=== PATIENT | female | born 1990 | race Caucasian/White ===

== ENCOUNTER 2018-10-15 17:34 | Emergency (ER) | payer OTHER ==
[~2018-10-15] VITALS: Ht 162.6 cm; Wt 52.3 kg
[2018-10-15 17:42] VITALS: TEMP 98.3
[2018-10-15] MEDS ORDERED: PROAIR HFA0.09 MG/AC IH (18:19)
[2018-10-15 19:34] VITALS: BP 141/95; PULSE 81
== END 2018-10-15 19:34 | disposition home or self-care (01) ==
LOC: COL.ER 17:34
DX: R07.89 Other chest pain (principal)

== ENCOUNTER 2020-08-24 12:37 | Emergency (ER) | payer MEDICAID ==
[~2020-08-24] VITALS: Ht 162.6 cm; Wt 52.3 kg
[~2020-08-24 12:37] MED LIST: PROAIR HFA0.09 MG/AC IH
[2020-08-24 13:05] VITALS: TEMP 98.2
[2020-08-24 14:12] VITALS: BP 118/70; PULSE 70
== END 2020-08-24 14:13 | disposition home or self-care (01) ==
LOC: COL.ER 12:37
DX: O98.513 Other viral diseases complicating pregnancy, third trimester (principal); U07.1 COVID-19; J45.909 Unspecified asthma, uncomplicated; Z3A.33 33 weeks gestation of pregnancy; Z79.51 Long term (current) use of inhaled steroids

== ENCOUNTER 2020-08-28 13:14 | Outpatient (CLI) | payer MEDICAID ==
[~2020-08-28] VITALS: Ht 170.2 cm; Wt 62.7 kg
--- NOTE | 2020-08-28 13:45 | NUR ---
[id number] 33.[address] Mathur to unit per MD for complaint of sharp nauseating pain at 1300 in [facility]. Paitient reports pain improved and is now only a 3/10 on pain scale. VSS, assessment complete. SVE C/TH/H, intact. Updated MD, see physician notification.
[2020-08-28 14:15] VITALS: BP 112/72; PULSE 94; TEMP 97.7
[2020-08-28 14:45] VITALS: BP 109/74; PULSE 102
--- NOTE | 2020-08-28 14:45 | NUR ---
PT HAD 1 CONTRACTION IN PAST 30 MINUTE STRIP, UTERUS MODERATELY FIRM, RN AT BEDSIDE PALPATING THROUGHOUT CONTRACTION, PT NOTICES CONTRACTIONS BUT NO OBVIOUS SIGNS OF PAIN
[2020-08-28 15:06] LABS: COLLECTION METHOD CLEAN CATCH
[2020-08-28 15:15] VITALS: BP 110/67; PULSE 100
[2020-08-28 15:19] LABS: ALANINE AMINOTRANSFERASE 14 U/L (4-34); ALBUMIN 3.4 gm/dL (3.5-5.0); ALKALINE PHOSPHATASE 129 U/L (50-136); ANION GAP 6 mmol/L (7-16); AST,SGOT 21 U/L (15-37); BILIRUBIN,TOTAL < 0.1 mg/dL (0.0-1.0); BLOOD UREA NITROGEN 3 mg/dL (7-17); CALCIUM 8.8 mg/dL (8.4-10.2); CARBON DIOXIDE 21 mmol/L (22-30); CHLORIDE 107 mmol/L (98-107); CREATININE, serum 0.38 (0.52-1.25); GLUCOSE 92 mg/dL (74-106); POTASSIUM 3.6 mmol/L (3.4-5.0); SODIUM 134 mmol/L (137-145); TOTAL PROTEIN 6.8 gm/dL (6.4-8.2)
[2020-08-28] MEDS ORDERED: PREDNISONE20 MG PO (15:20)
[2020-08-28] MEDS ORDERED: PRENATAL (15:21)
[2020-08-28] MEDS ORDERED: NATURAL IRON65 MG (15:21)
[2020-08-28 15:35] LABS: PH 8 (5-8); URINE APPEARANCE Clear; URINE BACTERIA Rare /hpf; URINE BILIRUBIN Negative (NEGATIVE); URINE BLOOD Negative (NEGATIVE); URINE COLOR Straw; URINE GLUCOSE Negative (NEGATIVE); URINE KETONE Negative (NEGATIVE); URINE LEUKOCYTE ESTERASE Negative (NEGATIVE); URINE NITRATE Negative (NEGATIVE); URINE PROTEIN(semi-quant) Negative (NEGATIVE); URINE RBC 0-2 /hpf; URINE UROBILINOGEN Negative (NEGATIVE)
[2020-08-28 15:45] VITALS: BP 113/64; PULSE 100
[2020-08-28 16:03] LABS: MEAN CELL VOLUME 89 fl (80.0-100.0); MEAN CORPUSCULAR HGB CONC 32 g/dl (33.0-37.0); MEAN PLATELET VOLUME 11.1 fl (7.4-10.4); PLATELET COUNT 256 K/mm3 (130-400); REDCELL DISTRIBUTION WIDTH-CV 14.7 % (11.5-14.5)
[2020-08-28 16:08] LABS: HEMATOCRIT 28.6 % (37.0-47.0); MEAN CORPUSCULAR HEMOGLOBIN 28 pg (27.0-31.0)
[2020-08-28 16:15] VITALS: PULSE 100
--- NOTE | 2020-08-28 16:15 | NUR ---
1615-Dr. Lara called unit. Order recieved to discharge patient. Patient off EFM. Updated on discharge plan. 1620-Reviewed discharge instructions with patient. Ambulatory down to car where family awaits to take patient home.
[2020-08-28 16:29] LABS: BAND 1 % (0-10); EOSINOPHIL 1 % (0-4); LYMPHOCYTE 23 % (20.0-51.0); NEUTROPHILS 70 % (42.0-75.2); NUCLEATED RED BLOOD CELL 1 (0-6)
[2020-08-28 16:30] LABS: PLATELET ESTIMATE NORMAL (NORMAL)
[2020-08-28 16:31] LABS: SCHISTOCYTES 1+; SPHEROCYTE 1+
== END 2020-08-28 16:20 | disposition home or self-care (01) ==
LOC: LDRO 13:14 → LDR 13:16 → LDRO 13:16 → LDR 13:45 → LDRO 13:45
PROVIDERS: Obstetrics & Gynecology
DX: O62.9 Abnormality of forces of labor, unspecified (principal); Z3A.33 33 weeks gestation of pregnancy
CPT/HCPCS: OP

== ENCOUNTER 2020-10-02 14:28 | Outpatient (CLI) | payer MEDICAID ==
[~2020-10-02] VITALS: Ht 160 cm; Wt 67.7 kg
--- NOTE | 2020-10-02 14:15 | NUR ---
Admits to L&D for labor check, with c/o cramping for several hours. Accompanied by significant other, father of baby.
[2020-10-02 14:21] VITALS: TEMP 97.9
[2020-10-02 14:22] VITALS: BP 119/73; PULSE 82; TEMP 97.9
[~2020-10-02 14:28] MED LIST changes: +NATURAL IRON65 MG; +PREDNISONE20 MG PO; +PRENATAL
--- NOTE | 2020-10-02 14:45 | NUR ---
Repositioned to right lateral.
[2020-10-02 14:50] VITALS: BP 102/63; PULSE 82
--- NOTE | 2020-10-02 15:05 | NUR ---
Discharged to home with early labor precautions/common discomforts of instructions. Denies any further questions or concerns. Instructed to return for evaluation with leaking of fluid, vaginal bleeding, or decreased movement. Verbalizes understanding.
== END 2020-10-02 15:05 | disposition home or self-care (01) ==
LOC: LDRO 14:28 → LDR 14:29 → LDRO 14:29
DX: O26.893 Other specified pregnancy related conditions, third trimester (principal); R25.2 Cramp and spasm; Z86.16 Personal history of COVID-19; Z3A.39 39 weeks gestation of pregnancy
CPT/HCPCS: OP

== ENCOUNTER 2020-10-06 14:28 | Outpatient (CLI) | payer MEDICAID ==
[~2020-10-06] VITALS: Ht 160 cm; Wt 69.1 kg
--- NOTE | 2020-10-06 14:30 | NUR ---
Pt arrived on unit ambulatory and with complaints of contractions/pain every couple mins for over an hour. Pt denies any leaking of fluid or vaginal bleeding and reports normal movement. EFM and toco monitors started. Vital signs WNL. SVE by this RN 0//-3. Information reviewed with Dr. Guerrero. Orders for labor assessment received.
[2020-10-06 15:37] VITALS: BP 127/86; PULSE 92; TEMP 98.1
== END 2020-10-06 15:50 | disposition home or self-care (01) ==
LOC: LDRO 14:28 → LDR 14:30 → LDRO 15:50
DX: Z34.93 Encounter for supervision of normal pregnancy, unspecified, third trimester (principal); Z3A.39 39 weeks gestation of pregnancy
CPT/HCPCS: OP

== ENCOUNTER 2020-10-07 11:03 | Inpatient (IN) | payer MEDICAID ==
[~2020-10-07] VITALS: Ht 160 cm; Wt 67.7 kg
[2020-10-07] VITALS (16 sets, daily range): BP systolic 97–121; BP diastolic 62–84; PULSE 60–86; TEMP 98–98.6
--- NOTE | 2020-10-07 11:15 | NUR ---
1115- Pt arrives on unit ambulatory with spouse. Pt into bathroom to change into gown. EFM and TOCO on and tracing. O2 sat monitor on and tracing maternal HR. VSS. Pt states she has been jeremy every 5mins for the past couple of hours. Denies LOF, VB. + FM per Pt but states it is "less than normal". 1120- Amniotrace negative, SVE by this RN. 1125- Dr Guerrero at nurses station, reviews stip, updated on Pt status. VORB to admit Pt for repeat section.
--- NOTE | 2020-10-07 11:30 | NUR ---
PATIENT PREPPED FOR C/S. IV STARTED, CONSENTS SIGNED, PATIENT ANXIOUS. PATIENT AMBULATED TO OR
--- NOTE | 2020-10-07 11:53 | NUR ---
1153- M and TOCO off. Pt ambulates to OR with MADELINE Starks.
[2020-10-07 12:13] LABS: BASO % 0.2 % (0.0-2.0); EOS % 0.3 % (0-4.0); GRAN # 8.7 (1.4-6.5); GRAN % 74.9 % (42.2-75.2); HEMOGLOBIN 11.6 g/dl (12.5-16.0); LYMPH # 1.9 (1.2-3.4); LYMPH % 16.4 % (20.0-51.0); MEAN CELL VOLUME 89 fl (80.0-100.0); MEAN CORPUSCULAR HEMOGLOBIN 30 pg (27.0-31.0); MEAN CORPUSCULAR HGB CONC 33 g/dl (33.0-37.0); MEAN PLATELET VOLUME 12.1 fl (7.4-10.4); MONO # 0.9 (0.1-0.6); MONO % 7.5 % (1.7-9.3); PLATELET COUNT 257 K/mm3 (130-400); RED BLOOD COUNT 3.92 M/mm3 (4.10-5.30); REDCELL DISTRIBUTION WIDTH-CV 17.1 % (11.5-14.5)
[2020-10-07 12:16] LABS: HEMATOCRIT 34.8 % (37.0-47.0)
[2020-10-08 02:00] VITALS: BP 132/82; PULSE 76; TEMP 97.9
[2020-10-08 08:10] VITALS: BP 131/77; PULSE 80; TEMP 98.3
[2020-10-08 12:35] VITALS: BP 120/83; PULSE 79; TEMP 97.3
[2020-10-08 21:30] VITALS: BP 112/78; PULSE 95; TEMP 98.1
[2020-10-09 07:21] VITALS: BP 123/84; PULSE 87; TEMP 97.4
[2020-10-09] MEDS ORDERED: MOTRIN SUSP20 MG/ML PO (12:52)
[2020-10-09] MEDS ORDERED: OXYCODONE H5 MG/5 ML PO (12:55)
== END 2020-10-09 18:21 | disposition home or self-care (01) | DRG 788 ==
LOC: LDRO 11:03 → LDR 11:34 → LDRO 11:56 → OB 11:56 → LDR 11:56 → OB 13:00
PROVIDERS: Obstetrics & Gynecology; ADMIT Obstetrics & Gynecology
PROC: 10D00Z1 Extraction of Products of Conception, Low, Open Approach (ICD-10-PCS; principal; 2020-10-07)
DX: O34.211 Maternal care for low transverse scar from previous cesarean delivery (principal); Z3A.38 38 weeks gestation of pregnancy; O99.02 Anemia complicating childbirth; O99.344 Other mental disorders complicating childbirth; F41.9 Anxiety disorder, unspecified; Z37.0 Single live birth; Z86.16 Personal history of COVID-19; D64.9 Anemia, unspecified; O77.0 Labor and delivery complicated by meconium in amniotic fluid
CPT/HCPCS: J0690; J1885; J2250; J2270; J2405; J2590; J3010; J7120

== ENCOUNTER 2023-11-01 12:34 | Emergency (ER) | payer MEDICAID ==
[~2023-11-01] VITALS: Ht 162.6 cm; Wt 59.1 kg
[~2023-11-01 12:34] MED LIST changes: +BACTRIM DS 8001 TAB PO; +MOTRIN SUSP20 MG/ML PO; +OXYCODONE H5 MG/5 ML PO
[2023-11-01 12:43] VITALS: BP 121/82; TEMP 98
[2023-11-01] MEDS ORDERED: NS 100 ML IV ONE (13:26)
[2023-11-01] MEDS ORDERED: Iohexol 300 - 100 ML VIAL IV ONE (13:26)
[2023-11-01 14:40] VITALS: PULSE 69
== END 2023-11-01 14:41 | disposition home or self-care (01) ==
LOC: COL.ER 12:34
DX: M54.2 Cervicalgia (principal); Y04.8XXA Assault by other bodily force, initial encounter
CPT/HCPCS: Q9967